=== PATIENT | female | born 1990 | race Caucasian/White ===

== ENCOUNTER 2016-08-30 17:49 | Emergency (ER) | payer MEDICAID ==
[2016-08-30] MEDS ORDERED: IBUPROFEN 800 MG TABLET PO ONE (18:03)
--- NOTE | 2016-08-30 18:04 | ER Document Report ---
ED Medical Screen (RME) - General Stated Complaint: BODY PAIN Mode of Arrival: Ambulatory Information source: Patient Notes: Patient complains of sore throat symptoms that started yesterday. Patient complains of generalized body aches. Patient states she has not been drinking much due to her pain symptoms. No fever. hx: None I have greeted and performed a rapid initial assessment of this patient. A comprehensive ED assessment and evaluation of the patient, analysis of test results and completion of the medical decision making process will be conducted by additional ED providers. TRAVEL OUTSIDE OF THE [place] IN LAST 30 DAYS: No - Related Data Allergies/Adverse Reactions: No Known Allergies Allergy (Verified 08/30/16 18:01) Past Medical History GI Medical History: Reports: Hx Gastritis Psychiatric Medical History: Reports: Hx Anxiety, Hx Attention Deficit Hyperactivity Disorder, Hx Bipolar Disorder, Hx Depression Infectious Medical History: Denies: Hx MRSA - Immunizations Hx Diphtheria, Pertussis, Tetanus Vaccination: Yes Physical Exam - Vital signs Vitals: Temp Pulse Resp BP Pulse Ox 98.5 F 121 H 20 117/63 94 08/30/16 17:59 08/30/16 17:59 08/30/16 17:59 08/30/16 17:59 08/30/16 17:59 - HEENT Pharynx: Erythema - Cardiovascular Rhythm: Tachycardia Heart sounds: S1 appreciated, S2 appreciated Course - Vital Signs Vital signs: Temp Pulse Resp BP Pulse Ox 98.5 F 121 H 20 117/63 94 08/30/16 17:59 08/30/16 17:59 08/30/16 17:59 08/30/16 17:59 08/30/16 17:59
--- NOTE | 2016-08-30 20:36 | ER Document Report ---
ED ENT - General Chief Complaint: Sore Throat Stated Complaint: BODY PAIN Time seen by provider: 20:35 Mode of Arrival: Ambulatory Information source: Patient TRAVEL OUTSIDE OF THE [place] IN LAST 30 DAYS: No - HPI Patient complains to provider of: Throat problem Onset: Yesterday Onset/Duration: Gradual, Persistent Quality of pain: Achy Severity: Moderate Pain Level: 3 Location of pain: Throat Associated symptoms: Dizziness Similar symptoms previously: No Recently seen / treated by doctor: No Notes: Patient is a 26-year-old female with no past medical history who presents to the emergency room complaining of sore throat that started yesterday with dizzy spells that of gone on intermittently, she denies any cough, no fever, no sick contacts, patient denies being , she is a smoker - Related Data Allergies/Adverse Reactions: No Known Allergies Allergy (Verified 08/30/16 18:01) Past Medical History - General Information source: Patient - Social History Smoking Status: Current Every Day Smoker Chew tobacco use (# tins/day): No Frequency of alcohol use: None Drug Abuse: None Family History: Reviewed & Not Pertinent Patient has suicidal ideation: No Patient has homicidal ideation: No Renal/ Medical History: Denies: Hx Peritoneal Dialysis GI Medical History: Reports: Hx Gastritis Psychiatric Medical History: Reports: Hx Anxiety, Hx Attention Deficit Hyperactivity Disorder, Hx Bipolar Disorder, Hx Depression Infectious Medical History: Denies: Hx MRSA Surgical Hx: Negative - Immunizations Hx Diphtheria, Pertussis, Tetanus Vaccination: Yes Review of Systems - Review of Systems Constitutional: No symptoms reported. denies: Fever EENT: Throat pain Cardiovascular: Dizziness Respiratory: No symptoms reported Gastrointestinal: No symptoms reported Genitourinary: No symptoms reported Female Genitourinary: No symptoms reported Musculoskeletal: No symptoms reported Skin: No symptoms reported Hematologic/Lymphatic: No symptoms reported Neurological/Psychological: No symptoms reported -: Yes All other systems reviewed and negative Physical Exam - Vital signs Vitals: Temp Pulse Resp BP Pulse Ox 98.5 F 121 H 20 117/63 94 08/30/16 17:59 08/30/16 17:59 08/30/16 17:59 08/30/16 17:59 08/30/16 17:59 Interpretation: Normal - General General appearance: Appears well, Alert - HEENT Head: Normocephalic, Atraumatic Eyes: Normal Conjunctiva: Normal Extraocular movements intact: Yes Eyelashes: Normal Pupils: PERRL Ears: Normal External canal: Normal Tympanic membrane: Normal Mouth/Lips: Normal Mucous membranes: Normal Pharynx: Erythema. No: Exudate, Tonsillar hypertrophy, Uvular edema Neck: Normal - Respiratory Respiratory status: No respiratory distress - Cardiovascular Rhythm: Regular - Abdominal Inspection: Normal - Back Back: Normal, Nontender - Extremities General upper extremity: Normal inspection, Nontender, Normal color, Normal ROM , Normal temperature General lower extremity: Normal inspection, Nontender, Normal color, Normal ROM , Normal temperature, Normal weight bearing. No: Kennedy's sign - Neurological Neuro grossly intact: Yes Cognition: Normal Orientation: AAOx4 [place] Coma Scale Eye Opening: Spontaneous [place] Coma Scale Verbal: Oriented [place] Coma Scale Motor: Obeys Commands [place] Coma Scale Total: 15 Speech: Normal Motor strength normal: LUE, RUE, LLE, RLE Sensory: Normal - Psychological Associated symptoms: Normal affect, Normal mood - Skin Skin Temperature: Warm Skin Moisture: Dry Skin Color: Normal Course - Re-evaluation Re-evalutation: 08/30/16 21:52 Physical exam findings unremarkable except for mild posterior pharynx erythema, patient states that the main to go home she is chewing his actually given her significant relief of her sore throat, she was advised that her rapid strep test was negative, advised to take Tylenol or Motrin as needed for pain or fever , drink plenty of fluids, follow up with her primary care provider in one to 2 days or return if symptoms worsen, patient acknowledges understanding and agreement with this plan - Vital Signs Vital signs: Temp Pulse Resp BP Pulse Ox 98.7 F 98 16 106/63 97 08/30/16 20:42 08/30/16 20:42 08/30/16 20:42 08/30/16 20:42 08/30/16 20:42 Discharge - Discharge Clinical Impression: Viral upper respiratory illness, Sore throat Condition: Stable Disposition: HOME, SELF-CARE Instructions: Acetaminophen, Sore Throat ([facility]), Upper Respiratory Illness ([facility]) , Viral Syndrome ([facility]) Additional Instructions: Drink plenty of fluids. Tylenol or Motrin as needed for fever. Follow-up with your primary care provider in one to 2 days. Return to the emergency room immediately if symptoms worsen or any additional concerns. Referrals: PRISCILLA ANTONY, CIRCULATION MAN-C [Primary Care Provider] - Follow up as needed
[2016-08-30 20:44] VITALS: BP 106/63
== END 2016-08-30 20:44 | disposition home or self-care (01) ==
LOC: ER 17:49
DX: J06.9 Acute upper respiratory infection, unspecified (principal); M79.1 Myalgia; R42 Dizziness and giddiness; F17.200 Nicotine dependence, unspecified, uncomplicated
CPT/HCPCS: 99283; 87070; 87880; J3490

== ENCOUNTER 2017-07-14 20:55 | Emergency (ER) | payer MEDICAID ==
[2017-07-14] MEDS ORDERED: ACETAMINOPHEN 325 MG TABLET PO ONE (22:05)
[2017-07-14] MEDS ORDERED: TETRACAINE HCL 0.5% OPH SOLN 2 ML OD ONE (23:04)
--- NOTE | 2017-07-14 23:22 | ER Document Report ---
HPI - HPI Patient complains to provider of: right eye injury Pain Level: 5 Context: Patient is a 26 year old female that comes to the ED for chief complaint of right eye discomfort and discharge. Yesterday her child accidentally hit her in the face, scratching her eye. She reports clear and slight yellow discharge, intermittent blurred vision, and pain. She denies visual loss. She does not wear visual correction. She denies any other injuries or complaints. - EENT EENT: REPORTS: Eye problems - redness, watering - REPRODUCTIVE Reproductive: REPORTS: : Past Medical History - General Information source: Patient - Social History Smoking Status: Current Every Day Smoker Chew tobacco use (# tins/day): No Frequency of alcohol use: Rare Drug Abuse: None Lives with: Family Family History: Reviewed & Not Pertinent Patient has suicidal ideation: No Patient has homicidal ideation: No Renal/ Medical History: Denies: Hx Peritoneal Dialysis GI Medical History: Reports: Hx Gastritis Psychiatric Medical History: Reports: Hx Anxiety, Hx Attention Deficit Hyperactivity Disorder, Hx Bipolar Disorder, Hx Depression - anxiety Infectious Medical History: Denies: Hx MRSA - Immunizations Hx Diphtheria, Pertussis, Tetanus Vaccination: Yes Vertical Provider Document - INFECTION CONTROL TRAVEL OUTSIDE OF THE [place] IN LAST 30 DAYS: No - HEENT HEENT: Atraumatic, Normocephalic. negative: Normal ENT Exam - Small abrasion on the inside of the right eyelid. Questionable tiny corneal abrasion on the inferior medial aspect of the cornea (noted with fluorescein dye). Negative Aubrey sign, no foreign body, normal pupil, minimally injected conjunctivae, no discharge, normal eyelids otherwise, normal EOMs, normal eye exam otherwise. - NECK Neck: Normal Inspection - RESPIRATORY Respiratory: Breath Sounds Normal, No Respiratory Distress O2 Sat by Pulse Oximetry: 98 - CARDIOVASCULAR Cardiovascular: Regular Rate, Regular Rhythm - GI/ABDOMEN Gastrointestinal: Abdomen Soft, Abdomen Non-Tender - NEURO Level of Consciousness: Awake, Alert, Appropriate - DERM Integumentary: Warm, Dry, No Rash Course - Vital Signs Vital signs: Temp Pulse Resp BP Pulse Ox 98.8 F 91 18 123/56 L 98 07/14/17 21:13 07/14/17 21:13 07/14/17 21:13 07/14/17 21:13 07/14/17 21:13 Discharge - Discharge Clinical Impression: Acute right eye pain Condition: Stable Disposition: HOME, SELF-CARE Additional Instructions: Exam consistent with abrasion of eyelid and cornea. Use antibiotic drops (1 drop three times daily for 7 days), use pain medication given if needed. Follow up with Ophthalmology referral listed. Return if you worsen - swelling or redness of the eye or eyelid, fever, loss of vision, etc. Referrals: LINDA PAN MD [ACTIVE STAFF] - 07/16/17
[2017-07-14] MEDS ORDERED: POLYMYXIN B SULFATE/TMP OPH SOLN 10 ML OD ONE (23:23)
[2017-07-14] MEDS ORDERED: HYDROCODONE/ACETAMINOPHEN 5-325 MG 6 TAB/DSPK PO PRN (23:25)
[2017-07-14] MEDS ORDERED: BESIFLOXACIN HCL 0.6% OPH SUSP 5 ML BOTTLE OD ONE (23:44)
[2017-07-15 00:17] VITALS: BP 113/59
== END 2017-07-14 23:55 | disposition home or self-care (01) ==
LOC: ER 20:55
DX: O9A.219 Injury, poisoning and certain other consequences of external causes complicating pregnancy, unspecified trimester (principal); S00.211A Abrasion of right eyelid and periocular area, initial encounter; H57.11 Ocular pain, right eye; H57.8 Other specified disorders of eye and adnexa; H53.8 Other visual disturbances; W50.0XXA Accidental hit or strike by another person, initial encounter; O99.330 Smoking (tobacco) complicating pregnancy, unspecified trimester; Z3A.00 Weeks of gestation of pregnancy not specified
CPT/HCPCS: 99283; J3490 ×3

== ENCOUNTER 2017-09-11 20:43 | Emergency (ER) | payer MEDICAID ==
[2017-09-11 21:38] LABS: APPEARANCE,URINE SLIGHTLY-CLOUDY; BILIRUBIN,URINE NEGATIVE (NEGATIVE); COLOR,URINE YELLOW; GLUCOSE, URINE NEGATIVE (NEGATIVE); KETONES,URINE NEGATIVE (NEGATIVE); LEUKOCYTE ESTERASE,URINE NEGATIVE (NEGATIVE); NITRITE,URINE NEGATIVE (NEGATIVE); PROTEIN,URINE NEGATIVE (NEGATIVE); URINE SPECIFIC GRAVITY 1.028; UROBILINOGEN,URINE NEGATIVE mg/dL (<2.0)
--- NOTE | 2017-09-11 22:21 | ER Document Report ---
ED Medical Screen (RME) - General Chief Complaint: Abdominal Pain Stated Complaint: ABDOMINAL PAIN Time Seen by Provider: 09/11/17 22:19 Mode of Arrival: Ambulatory Information source: Patient Notes: 27-year-old female presents to ED for complaint of generalized severe abdominal pain level 5/5 since yesterday 2 AM. She states her last BM was today. Denies any nausea/vomiting/diarrhea or fever. Abdomen soft nondistended tender generalized. Taking any medication for the pain. States she has a history of reflux. I have greeted and performed a rapid initial assessment of this patient. A comprehensive ED assessment and evaluation of the patient, analysis of test results and completion of medical decision making process will be conducted by an additional ED providers. TRAVEL OUTSIDE OF THE [place] IN LAST 30 DAYS: No - Related Data Allergies/Adverse Reactions: No Known Allergies Allergy (Verified 07/14/17 23:00) Past Medical History Renal/ Medical History: Denies: Hx Peritoneal Dialysis GI Medical History: Reports: Hx Gastritis Psychiatric Medical History: Reports: Hx Anxiety, Hx Attention Deficit Hyperactivity Disorder, Hx Bipolar Disorder, Hx Depression - anxiety Infectious Medical History: Denies: Hx MRSA - Immunizations Hx Diphtheria, Pertussis, Tetanus Vaccination: Yes Physical Exam - Vital signs Vitals: Temp Pulse Resp BP Pulse Ox 98.5 F 106 H 18 129/71 H 98 09/11/17 20:51 09/11/17 20:51 09/11/17 20:51 09/11/17 20:51 09/11/17 20:51 Course - Vital Signs Vital signs: Temp Pulse Resp BP Pulse Ox 98.5 F 106 H 18 129/71 H 98 09/11/17 20:51 09/11/17 20:51 09/11/17 20:51 09/11/17 20:51 09/11/17 20:51
[2017-09-11 23:17] LABS: ABSOLUTE EOSINOPHILS # (AUTO) 0.2 10^3/uL (0.0-0.6); ABSOLUTE MONOCYTES (AUTO) 0.5 10^3/uL (0.1-1.4); ABSOLUTE NEUT (AUTO) 7.8 10^3/uL (1.7-8.2); BASOPHILS % (AUTO) 0.3 % (0-2); EOSINOPHILS % (AUTO) 1.4 % (0-6); HEMATOCRIT 42.3 % (36.0-47.0); HEMOGLOBIN 14.7 g/dL (12.0-15.5); LYMPHOCYTES % (AUTO) 31.8 % (13-45); MEAN CORPUSCULAR HGB CONC 34.7 g/dL (32.0-36.0); MEAN CORPUSCULAR VOLUME 89 fl (80-97); MONOCYTES % (AUTO) 4.3 % (3-13); PLATELET COUNT 206 10^3/uL (150-450); RED BLOOD COUNT 4.74 10^6/uL (3.72-5.28); RED CELL DISTRIBUTION WIDTH 12.6 % (11.5-14.0); SEGMENTED NEUTROPHILS % (AUTO) 62.2 % (42-78); TOTAL CELLS COUNTED % (AUTO) 100 %; WHITE BLOOD COUNT 12.6 10^3/uL (4.0-10.5)
[2017-09-12 02:17] LABS: ALANINE AMINOTRANSFERASE 58 U/L (9-52); ALBUMIN 4.1 g/dL (3.5-5.0); ALKALINE PHOSPHATASE 119 U/L (38-126); ANION GAP 11 (5-19); ASPARTATE AMINO TRANSFERASE 38 U/L (14-36); BILIRUBIN,DIRECT 0.3 mg/dL (0.0-0.4); BILIRUBIN,TOTAL 0.3 mg/dL (0.2-1.3); BLOOD UREA NITROGEN 16 mg/dL (7-20); CARBON DIOXIDE 22 mmol/L (22-30); CHLORIDE 105 mmol/L (98-107); GLUCOSE 93 mg/dL (75-110); POTASSIUM 4.1 mmol/L (3.6-5.0); TOTAL PROTEIN 6.6 g/dL (6.3-8.2)
[2017-09-12] MEDS ORDERED: NORMAL SALINE 1000 ML 1,000 ML IV ONE (02:24)
[2017-09-12] MEDS ORDERED: ONDANSETRON HCL INJ/PF 4 MG/2 ML SDV IV ONE (02:24)
[2017-09-12] MEDS ORDERED: HYDROMORPHONE HCL INJ/PF 2 MG/ML AMPULE IV ONE (02:24)
--- NOTE | 2017-09-12 02:30 | ER Document Report ---
ED General - General Chief Complaint: Abdominal Pain Stated Complaint: ABDOMINAL PAIN Time Seen by Provider: 09/11/17 22:19 Mode of Arrival: Ambulatory Information source: Patient TRAVEL OUTSIDE OF THE [place] IN LAST 30 DAYS: No - HPI Notes: 27-year-old lady with no significant past medical history who presented today for evaluation of abdominal pain. Patient reported that her pain started approximately 2 days ago. Pain started in her lower abdomen described as cramping, no radiation, severity of pain was 6 out of 10. Patient did notice that today her pain progressed into her mid abdomen. Patient denied any fevers , chills, nausea or vomiting, no diarrhea. Patient denies any vaginal bleeding or dysuria. No prior history of abdominal surgeries. Patient has IUD. - Related Data Allergies/Adverse Reactions: No Known Allergies Allergy (Verified 07/14/17 23:00) Past Medical History - General Information source: Patient - Social History Smoking Status: Unknown if Ever Smoked Family History: Reviewed & Not Pertinent Patient has suicidal ideation: No Patient has homicidal ideation: No Renal/ Medical History: Denies: Hx Peritoneal Dialysis GI Medical History: Reports: Hx Gastritis Psychiatric Medical History: Reports: Hx Anxiety, Hx Attention Deficit Hyperactivity Disorder, Hx Bipolar Disorder, Hx Depression - anxiety Infectious Medical History: Denies: Hx MRSA - Immunizations Hx Diphtheria, Pertussis, Tetanus Vaccination: Yes Review of Systems - Review of Systems Notes: REVIEW OF SYSTEMS: CONSTITUTIONAL: -fevers, -chills EENT: -eye pain, -difficulty swallowing, -nasal congestion CARDIOVASCULAR: -chest pain, -syncope. RESPIRATORY: -cough, -SOB GASTROINTESTINAL: +abdominal pain, -nausea, -vomiting, -diarrhea GENITOURINARY: -dysuria, -hematuria MUSCULOSKELETAL: -back pain, -neck pain SKIN: -rash or skin lesions. HEMATOLOGIC: -easy bruising or bleeding. LYMPHATIC: -swollen, enlarged glands. NEUROLOGICAL: -altered mental status or loss of consciousness, -headache, - neurologic symptoms PSYCHIATRIC: -anxiety, -depression. ALL OTHER SYSTEMS REVIEWED AND NEGATIVE. Physical Exam - Vital signs Vitals: Temp Pulse Resp BP Pulse Ox 98.5 F 106 H 18 129/71 H 98 09/11/17 20:51 09/11/17 20:51 09/11/17 20:51 09/11/17 20:51 09/11/17 20:51 - Notes Notes: Reviewed vital signs and nursing note as charted by RN. CONSTITUTIONAL: Alert and oriented and responds appropriately to questions HEAD: Normocephalic; atraumatic EYES: PERRL; Conjunctivae clear, sclerae non-icteric ENT: normal nose; no rhinorrhea NECK: Supple without meningismus CARD: Regular rate and rhythm; no murmurs, no clicks, no rubs, no gallops; symmetric distal pulses RESP: Normal chest excursion without splinting or tachypnea ABD/GI: Normal bowel sounds; non-distended; soft, mild tenderness to palpation in bilateral lower quadrant as well as suprapubic area BACK: The back appears normal and is non-tender to palpation EXT: Normal ROM in all joints; non-tender to palpation; no cyanosis, no effusions, no edema SKIN: Normal color for age and race; warm; dry; good turgor; capillary refill < 2 seconds; no acute lesions noted NEURO: .Cranial nerves 3-12 intact. Motor strength 5/5 bilaterally. Sensation intact to touch bilaterally. No pronator drift. Finger to nose intact bilaterally PSYCH: The patient's mood and manner are appropriate. Grooming and personal hygiene are appropriate. Course - Re-evaluation Re-evalutation: 09/12/17 02:28 27-year-old with lower abdominal pain for the past 2 days Differential diagnoses includes acute appendicitis, intra-abdominal infection, colitis, acute cystitis, hematuria, kidney stone, We will obtain basic lab work including CBC, CMP, lipase, urinalysis, urine test We will obtain CT scan of her abdomen and pelvis with contrast We will give patient IV Dilaudid for pain, Zofran for nausea IV fluids Reassess patient - Vital Signs Vital signs: Temp Pulse Resp BP Pulse Ox 98.5 F 106 H 18 129/71 H 98 09/11/17 20:51 09/11/17 20:51 09/11/17 20:51 09/11/17 20:51 09/11/17 20:51 - Laboratory Result Diagrams: 09/11/17 22:50 09/12/17 01:45 Laboratory results interpreted by me: 09/11/17 09/12/17 22:50 01:45 WBC 12.6 H AST 38 H ALT 58 H Discharge - Discharge Referrals: PRISCILLA ANTONY, STRUCTURAL TECHNICIANChristianoC [Primary Care Provider] - Follow up as needed
--- NOTE | 2017-09-12 05:40 | RADIOLOGY REPORT (SQ) ---
EXAM DESCRIPTION: CT ABD/PELVIS WITH IV ORAL CLINICAL HISTORY: 27 years Female, lower abdominal pain COMPARISON: None. TECHNIQUE: No contrast. Coronal and sagittal reformat. This exam was performed according to our departmental dose-optimization program, which includes automated exposure control, adjustment of the mA and/or kV according to patient size and/or use of iterative reconstruction technique. FINDINGS: No acute findings. No free fluid. Normal appendix. Adequate appearing IUD. Inferior thorax, liver, gallbladder, pancreas, spleen, adrenals, renal system, gastrointestinal tract, pelvic organs, lymphatics, vasculature, and musculoskeleton appear otherwise unremarkable. IMPRESSION: No acute findings.
[2017-09-12] MEDS ORDERED: HYDROCODONE/ACETAMINOPHEN 5-325 MG (6 TAB/ER DISP) PO PRN (05:52)
[2017-09-12 06:33] VITALS: BP 110/63
== END 2017-09-12 06:30 | disposition home or self-care (01) ==
LOC: ER 20:43
DX: R10.30 Lower abdominal pain, unspecified (principal)
CPT/HCPCS: 99284; 96360; 36415; 83690; 85025; 81025; 80053; 81001; 74177; J7030

== ENCOUNTER 2018-05-26 12:54 | Emergency (ER) | payer MEDICAID ==
[2018-05-26 13:49] VITALS: BP 96/41
--- NOTE | 2018-05-26 13:50 | ER Document Report ---
ED General - General Chief Complaint: Cough Stated Complaint: COUGH Time Seen by Provider: 05/26/18 13:40 Mode of Arrival: Ambulatory Information source: Patient Notes: 27-year-old female presents emergency department with complaints of a cough for the last 2 months. She describes it as a dry cough. She denies following up with her family physician for the cough. She has not taken any antibiotics or cough and cold medication. She states that she has had associated rhinorrhea and sore throat. There have been sick contacts around her with similar symptoms. Patient states she does smoke. She states that today she was coughing so much that it caused her to vomit. TRAVEL OUTSIDE OF THE [place] IN LAST 30 DAYS: No - HPI Onset: Other - 2 months Quality of pain: No pain Severity: None Pain Level: Denies Associated symptoms: Nonproductive cough Exacerbated by: Denies Relieved by: Denies Similar symptoms previously: No Recently seen / treated by doctor: No - Related Data Allergies/Adverse Reactions: No Known Allergies Allergy (Verified 05/26/18 12:56) Past Medical History - General Information source: Patient - Social History Smoking Status: Current Every Day Smoker Chew tobacco use (# tins/day): No Frequency of alcohol use: Rare Drug Abuse: None Family History: Reviewed & Not Pertinent Patient has suicidal ideation: No Patient has homicidal ideation: No Renal/ Medical History: Denies: Hx Peritoneal Dialysis GI Medical History: Reports: Hx Gastritis Psychiatric Medical History: Reports: Hx Anxiety, Hx Attention Deficit Hyperactivity Disorder, Hx Bipolar Disorder, Hx Depression - anxiety Infectious Medical History: Denies: Hx MRSA - Immunizations Hx Diphtheria, Pertussis, Tetanus Vaccination: Yes Review of Systems - Review of Systems Constitutional: No symptoms reported EENT: Nose congestion, Nose discharge Cardiovascular: No symptoms reported Respiratory: Cough Gastrointestinal: No symptoms reported Genitourinary: No symptoms reported Female Genitourinary: No symptoms reported Musculoskeletal: No symptoms reported Skin: No symptoms reported Hematologic/Lymphatic: No symptoms reported Physical Exam - Vital signs Vitals: Temp Pulse Resp BP Pulse Ox 98.2 F 72 18 101/61 95 05/26/18 13:02 05/26/18 13:02 05/26/18 13:02 05/26/18 13:02 05/26/18 13:02 - General Notes: PHYSICAL EXAMINATION: GENERAL: Well-appearing, well-nourished and in no acute distress. HEAD: Atraumatic, normocephalic. EYES: Pupils equal round and reactive to light, extraocular movements intact, conjunctiva are normal. ENT: Nares patent, oropharynx clear without exudates. Moist mucous membranes. NECK: Normal range of motion, supple without lymphadenopathy LUNGS: Breath sounds clear to auscultation bilaterally and equal. No wheezes rales or rhonchi. HEART: Regular rate and rhythm without murmurs ABDOMEN: Soft, nontender, nondistended abdomen. No guarding, no rebound. No masses appreciated. Female : deferred Musculoskeletal: Normal range of motion, no pitting or edema. No cyanosis. NEUROLOGICAL: Cranial nerves grossly intact. Normal speech, normal gait. Normal sensory, motor exams PSYCH: Normal mood, normal affect. SKIN: Warm, Dry, normal turgor, no rashes or lesions noted. Course - Re-evaluation Re-evalutation: 05/26/18 13:45 Vital signs are stable. As the patient's cough is been present for the last 2 months I will start her on antibiotics. I also sent her home with 5-day course of steroids. Patient educated to stop smoking. Patient told to take the medication prescribed as directed, to follow-up with her primary care physician this week, and to return to the emergency department for worsening symptoms. - Vital Signs Vital signs: Temp Pulse Resp BP Pulse Ox 98.2 F 72 18 101/61 95 05/26/18 13:02 05/26/18 13:02 05/26/18 13:02 05/26/18 13:02 05/26/18 13:02 Discharge - Discharge Clinical Impression: Cough Condition: Good Disposition: HOME, SELF-CARE Instructions: Cough Suppressant & Expectorant Medications Prescriptions: Benzonatate [Tessalon Perles 100 mg Capsule] 100 mg PO Q8HP PRN #20 capsule PRN Reason: Azithromycin 250 mg PO DAILY 5 Days #6 tablet Referrals: PRISCILLA ANTONY FNP-C [Primary Care Provider] - Follow up as needed
== END 2018-05-26 13:53 | disposition home or self-care (01) ==
LOC: ER 12:54
DX: R05 Cough (principal); F17.200 Nicotine dependence, unspecified, uncomplicated
CPT/HCPCS: 99283

== ENCOUNTER 2018-08-11 23:15 | Emergency (ER) | payer MEDICAID ==
--- NOTE | 2018-08-12 02:25 | ER Document Report ---
HPI - HPI Patient complains to provider of: back pain Time Seen by Provider: 08/12/18 02:00 Pain Level: 5 Context: 28-year-old female with history of chronic back pain presents to the emergency department for acute on chronic back pain. She states is been going on for about 1 week and is bilateral that starts from her trapezius muscles down to her buttocks. She denies fevers, chills, nausea, vomiting, any urinary symptoms. She denies saddle paresthesia or urinary retention. She has no other symptoms. She states she can usually manage it at home with Aleve but the pain is too acute. - CONSTITUTIONAL Constitutional: DENIES: Fever, Chills - REPRODUCTIVE Reproductive: DENIES: : Past Medical History - Social History Smoking Status: Current Every Day Smoker Chew tobacco use (# tins/day): No Frequency of alcohol use: None Drug Abuse: None Family History: Reviewed & Not Pertinent Patient has suicidal ideation: No Patient has homicidal ideation: No Renal/ Medical History: Denies: Hx Peritoneal Dialysis GI Medical History: Reports: Hx Gastritis Psychiatric Medical History: Reports: Hx Anxiety, Hx Attention Deficit Hyperactivity Disorder, Hx Bipolar Disorder, Hx Depression - anxiety Infectious Medical History: Denies: Hx MRSA - Immunizations Hx Diphtheria, Pertussis, Tetanus Vaccination: Yes Vertical Provider Document - CONSTITUTIONAL Notes: Reviewed vital signs and nursing note as charted by RN. CONSTITUTIONAL: Well-appearing, well-nourished, acting appropriately for age HEAD: Normocephalic, atraumatic, no swelling EYES: PERRL, Conjunctivae clear, no drainage, EOMI, no scleral icterus NECK: Supple, no cervical lymphadenopathy, no masses CARD: Regular rate and rhythm, no murmurs, no rubs, no gallops, capillary refill < 2 seconds, symmetric pulses RESP: The lungs are clear to auscultation bilaterally, no wheezing, no rales, no rhonchi. Respiratory rate and effort are normal, normal chest excursion. No respiratory distress, no retractions, no stridor, no nasal flaring, no accessory muscle use. ABD/GI: Normal bowel sounds, non-distended, soft, non-tender, no rebound, no guarding, no palpable organomegaly EXT: Normal ROM in all joints, non-tender to palpation, no effusions, no edema BACK: Bilateral tenderness to palpation from the upper trapezius muscles down through the medial scapula bilateral down to the lumbar spine and the paraspinal muscles. No swelling no erythema no warmth. SKIN: Normal color for age and race, warm, dry, good turgor, no acute lesions noted NEURO: No facial asymmetry, moves all extremities equally, motor and sensory function intact - INFECTION CONTROL TRAVEL OUTSIDE OF THE [place] IN LAST 30 DAYS: No Course - Re-evaluation Re-evalutation: 08/12/18 02:29 28-year-old female with acute on chronic back pain presents to the emergency department for acute back pain that she cannot resolve with Aleve at home. She states she was carrying a fish tank and created a good distance downstairs outside which she thinks exacerbated the problem. She tried Aleve did not work, no fevers, no urinary retention, no saddle paresthesia, no concerns for any emergent spinal cord issues. Patient is very reliable and I am going to give her a couple of Valium that she can take get filled for acute breakthrough muscle tension and then a prescription for Robaxin that she can have on hand for when she has flares. She is stable for discharge. - Vital Signs Vital signs: Temp Pulse Resp BP Pulse Ox 98.0 F 75 17 115/66 100 08/11/18 23:52 08/11/18 23:52 08/11/18 23:52 08/11/18 23:52 08/11/18 23:52 Discharge - Discharge Clinical Impression: Back pain Qualifiers: Back pain location: thoracic back pain Chronicity: chronic Back pain laterality: bilateral Qualified Code(s): M54.6 - Pain in thoracic spine; G89.29 - Other chronic pain Condition: Stable Disposition: HOME, SELF-CARE Instructions: Ice Packs ([facility]), Low Back Pain ([facility]), Muscle Strain ([facility]), Warm Packs ([facility]) Additional Instructions: You are seen in the emergency department this evening for acute on chronic back pain. You had no concerning signs for any severe neurologic compromise. I have prescribed you with a muscle relaxer that you can take and also a small amount of Valium that you can take for breakthrough pain. These do not drive or operate machinery taking these. Please do not take them together. Please return to the emergency department if you get saddle paresthesia i.e. numbness in your sit bones, you have urinary retention, you cannot control your bowels, or you have any other concerning symptoms. Prescriptions: Diazepam [Valium 5 mg Tablet] 5 mg PO TID #5 tablet Methocarbamol [Robaxin 750 mg Tablet] 750 mg PO Q6 #20 tablet
[2018-08-12 02:39] VITALS: BP 127/65
== END 2018-08-12 02:39 | disposition home or self-care (01) ==
LOC: ER 23:15
DX: G89.29 Other chronic pain (principal); M54.6 Pain in thoracic spine; F17.200 Nicotine dependence, unspecified, uncomplicated
CPT/HCPCS: 99283

== ENCOUNTER 2018-09-13 12:37 | Emergency (ER) | payer MEDICAID ==
--- NOTE | 2018-09-13 13:01 | EKG REPORT ---
SEVERITY:- NORMAL ECG - SINUS RHYTHM : Confirmed by: Aneesh Reece MD 13-Sep-2018 13:00:32
[2018-09-13] MEDS ORDERED: ASPIRIN 81 MG TABLET, CHEWABLE PO ONE (13:59)
[2018-09-13] MEDS ORDERED: IPRATROPIUM/ALBUTEROL 0.5-2.5 MG/3 ML AMPUL NEB ONE (14:00)
[2018-09-13] MEDS ORDERED: ACETAMINOPHEN 325 MG TABLET PO ONE (14:00)
--- NOTE | 2018-09-13 14:26 | ER Document Report ---
ED General - General Chief Complaint: Chest Pain Stated Complaint: CHEST PAIN, SHORTNESS OF BREATH Time Seen by Provider: 09/13/18 13:53 Mode of Arrival: Ambulatory Information source: Patient Notes: 28-year-old female with no reported past medical history except for chronic back pain presents with complaint of chest pain that started 4 hours prior to arrival while at work. Patient describes the pain as pressure-like. She reports pain with inspiration. She denies coughing, shortness of breath. Patient's back pain is unchanged and described as a throbbing aching pain that is worse with movement. Patient does report recent heavy lifting at work yesterday and this morning. Patient does have a smoking history but denies family history of early cardiac disease. Patient has not had any nausea, diaphoresis, recent illness. TRAVEL OUTSIDE OF THE [place] IN LAST 30 DAYS: No - HPI Onset: This morning Onset/Duration: Gradual, Persistent Quality of pain: Pressure Severity: Mild Associated symptoms: Chest pain, Hurts to breath, Other - Back pain. denies: Nonproductive cough, Nausea, Vomiting, Shortness of breath, Sweating Exacerbated by: Movement Relieved by: Denies Similar symptoms previously: Yes Recently seen / treated by doctor: No - Related Data Allergies/Adverse Reactions: No Known Allergies Allergy (Verified 09/13/18 13:53) Past Medical History - General Information source: Patient, [facility] Records - Social History Smoking Status: Current Every Day Smoker Cigarette use (# per day): Yes - 8 Smoking Education Provided: Yes - Smoking cessation counseling was provided for 4 minutes at the bedside Frequency of alcohol use: None Drug Abuse: None Lives with: Family Family History: Reviewed & Not Pertinent Patient has suicidal ideation: No Patient has homicidal ideation: No Renal/ Medical History: Denies: Hx Peritoneal Dialysis GI Medical History: Reports: Hx Gastritis Musculoskeletal Medical History: Reports Other - Chronic back pain Psychiatric Medical History: Reports: Hx Anxiety, Hx Attention Deficit Hyperactivity Disorder, Hx Bipolar Disorder, Hx Depression - anxiety Infectious Medical History: Denies: Hx MRSA - Immunizations Hx Diphtheria, Pertussis, Tetanus Vaccination: Yes Review of Systems - Review of Systems Notes: REVIEW OF SYSTEMS: CONSTITUTIONAL : Denies fever, chills, or sweats. Denies recent illness. Denies weight loss, recent hospitalizations. EENT: Denies visual changes, eye pain. Denies sore throat, oral lesions, difficulty swallowing. CARDIOVASCULAR: Denies palpitations. Denies lower extremity edema. RESPIRATORY: Denies cough. Denies shortness of breath, wheezing. GASTROINTESTINAL: Denies abdominal pain or distention. Denies nausea, vomiting, or diarrhea. Denies blood in vomitus, stools, or per rectum. Denies black, tarry stools. Denies constipation. GENITOURINARY: Denies difficulty urinating, painful urination, frequency, blood in urine, or vaginal discharge. MUSCULOSKELETAL: Denies neck pain or stiffness. Denies joint pain or swelling. SKIN: Denies rash, lesions or sores. HEMATOLOGIC : Denies easy bruising or bleeding. LYMPHATIC: Denies swollen glands. NEUROLOGICAL: Denies confusion or altered mental status. Denies loss of consciousness. Denies dizziness or lightheadedness. Denies headache. Denies weakness or paralysis. Denies problems difficulty with ambulation, slurred speech. Denies sensory loss, numbness, or tingling. Denies seizures. PSYCHIATRIC: Denies anxiety or stress. Denies depression, suicidal ideation, or homicidal ideation. Denies visual or auditory hallucinations. Physical Exam - Vital signs Vitals: Temp Pulse Resp BP Pulse Ox 98.6 F 62 18 125/63 100 09/13/18 12:52 09/13/18 12:52 09/13/18 12:52 09/13/18 12:52 09/13/18 12:52 - Notes Notes: PHYSICAL EXAMINATION: GENERAL: Well-appearing, well-nourished and in no acute distress. HEAD: Atraumatic, normocephalic. EYES: Pupils equal round and reactive to light, extraocular movements intact, conjunctiva are normal. ENT: Nares patent, oropharynx clear without exudates. Moist mucous membranes. NECK: Normal range of motion, supple without lymphadenopathy LUNGS: Breath sounds clear to auscultation bilaterally and equal. No wheezes rales or rhonchi. Pain with palpation to the anterior chest. No ecchymosis, no crepitus. HEART: Regular rate and rhythm without murmurs ABDOMEN: Soft, nontender, nondistended abdomen. No guarding, no rebound. No masses appreciated. Female : deferred Musculoskeletal: Normal range of motion, no pitting or edema. No cyanosis. Tenderness to the paraspinal musculature of the thoracic spine bilaterally. No midline tenderness. NEUROLOGICAL: Cranial nerves grossly intact. Normal speech, normal gait. Normal sensory, motor exams PSYCH: Normal mood, normal affect. SKIN: Warm, Dry, normal turgor, no rashes or lesions noted. Course - Re-evaluation Re-evalutation: 09/13/18 16:41 Laboratory 09/13/18 09/13/18 09/13/18 14:22 14:22 14:22 WBC 7.9 RBC 4.33 Hgb 13.8 Hct 39.4 MCV 91 MCH 31.8 MCHC 35.0 RDW 13.4 Plt Count 185 Seg Neutrophils % 58.8 Lymphocytes % 34.8 Monocytes % 5.0 Eosinophils % 1.1 Basophils % 0.3 Absolute Neutrophils 4.7 Absolute Lymphocytes 2.8 Absolute Monocytes 0.4 Absolute Eosinophils 0.1 Absolute Basophils 0.0 Sodium 142.6 Potassium 4.2 Chloride 106 Carbon Dioxide 29 Anion Gap 8 BUN 13 Creatinine 0.74 Est GFR ( Amer) > 60 Est GFR (Non-Af Amer) > 60 Glucose 97 Calcium 9.6 Total Bilirubin 0.5 Direct Bilirubin 0.2 Neonat Total Bilirubin Not Reportable Neonat Direct Bilirubin Not Reportable Neonat Indirect Bili Not Reportable AST 13 L ALT 20 Alkaline Phosphatase 97 Creatine Kinase 44 CK-MB (CK-2) 0.37 Troponin I < 0.012 Total Protein 7.1 Albumin 4.6 Chest/Abdomen CTA 09/13/18 13:59 IMPRESSION: NORMAL CTA OF THE CHEST. NO PULMONARY EMBOLI. Temp Pulse Resp BP Pulse Ox 98.6 F 62 18 125/63 100 09/13/18 12:52 09/13/18 12:52 09/13/18 12:52 09/13/18 12:52 09/13/18 12:52 28-year-old female presents with pleuritic chest pain, upper back pain. Patient reports back pain as being chronic. Chest pain started this morning while at work. Patient does report recent heavy lifting. Vital signs stable upon arrival. Patient does not appear toxic or dehydrated. She is in no acute distress. Previous medical records and nursing notes reviewed. Cardiac enzymes, CBC, CMP are within normal limits. CTA of the chest is without evidence of pneumothorax, pneumonia, PE. Low suspicion for ACS. Patient did receive Toradol for pain. Patient was evaluated and treated as appropriate for the patient's presenting symptoms and complaint, with consideration of any critical or life threatening conditions that may be associated with their obtained history and exam as noted above. All results were discussed with patient. Patient provided the opportunity to ask questions, and express concerns. Patient was educated on treatments based on their presumed diagnosis as noted above. At this time we will discharge the patient with return precautions and follow-up recommendations. Verbal discharge instructions given a the bedside. Medication warnings reviewed. Patient is in agreement with this plan and has verbalized understanding of return precautions. After careful consideration I feel that that patient can be safely discharged from the emergency department, they were advised to followup with a primary care physician in 2-3 days. Dictation on this chart was performed using voice recognition software and may result in unintended grammatical, spelling, syntax or errors. HEART Score: History-0 ECG-0 Age-0 Risk Factors-1 Troponin Total: 1 If HEART score is = 3 AND both troponin measurements are normal, the 30 day risk of a major adverse cardiac event (all-cause mortality, myocardial infarction or need for coronary revascularization) is < 1% (Sensitivity 100%, NPV 100%). Chest pain in a patient without evidence of cardiac or other serious etiology on workup today. I discussed with patient that, based on their age, risk factors and emergency department testing today, the likelihood that their symptoms are related to a heart attack is very low (estimated risk of heart attack or over the next 30 days of less than 1%). The patient demonstrates decision making capacity and has verbalized an understanding of these risks to me. Based on this, the patient has chosen to follow-up as an outpatient. Usual chest pain return precautions reviewed. The patient states understanding and agreement with this plan. - Vital Signs Vital signs: Temp Pulse Resp BP Pulse Ox 98.6 F 62 18 125/63 100 09/13/18 12:52 09/13/18 12:52 09/13/18 12:52 09/13/18 12:52 09/13/18 12:52 - Laboratory Result Diagrams: 09/13/18 14:22 09/13/18 14:22 Laboratory results interpreted by me: 09/13/18 14:22 AST 13 L - Diagnostic Test Radiology reviewed: Image reviewed, Reports reviewed - EKG Interpretation by Me EKG shows normal: Sinus rhythm Rate: Normal Rhythm: NSR When compared to previous EKG there are: No significant change Discharge - Discharge Clinical Impression: Smoker, Chest wall pain, Costochondritis Chronic back pain Qualifiers: Back pain location: thoracic back pain Back pain laterality: bilateral Qualified Code(s): M54.6 - Pain in thoracic spine; G89.29 - Other chronic pain Condition: Good Disposition: HOME, SELF-CARE Instructions: Chest Wall Pain ([facility]), Costochondritis ([facility]) Additional Instructions: You were seen today for chest pain. The exact cause of your pain is unclear. However, based on your cardiac enzyme testing, chest x-ray, and EKG it does not appear that it is from an immediately life-threatening cause at this time. Although your testing here is normal is critical that you follow-up with your primary care physician for continued evaluation of this chest pain and possible stress testing. I recommended you see your physician within the next 24-48 hours to be evaluated for consideration of a stress test. Please return to emergency department immediately if you have worsening of your chest pain, shortness of breath, vomiting, become unable to exert yourself due to pain or difficulty breathing, you pass out, or have any pain that radiates into your arms, jaw, or back. Please also return if you have any additional symptoms that are concerning to you. Prescriptions: Naproxen [Naprosyn 250 mg Tablet] 500 mg PO BID PRN #20 tablet PRN Reason: For Chest Pain Forms: Smoking Cessation Education, Return to Work
[2018-09-13 14:38] LABS: ABSOLUTE EOSINOPHILS # (AUTO) 0.1 10^3/uL (0.0-0.6); ABSOLUTE LYMPHOCYTES (AUTO) 2.8 10^3/uL (0.5-4.7); ABSOLUTE MONOCYTES (AUTO) 0.4 10^3/uL (0.1-1.4); ABSOLUTE NEUT (AUTO) 4.7 10^3/uL (1.7-8.2); BASOPHILS % (AUTO) 0.3 % (0-2); EOSINOPHILS % (AUTO) 1.1 % (0-6); HEMATOCRIT 39.4 % (36.0-47.0); HEMOGLOBIN 13.8 g/dL (12.0-15.5); LYMPHOCYTES % (AUTO) 34.8 % (13-45); MEAN CORPUSCULAR HEMOGLOBIN 31.8 pg (27.0-33.4); MEAN CORPUSCULAR VOLUME 91 fl (80-97); PLATELET COUNT 185 10^3/uL (150-450); RED BLOOD COUNT 4.33 10^6/uL (3.72-5.28); RED CELL DISTRIBUTION WIDTH 13.4 % (11.5-14.0); SEGMENTED NEUTROPHILS % (AUTO) 58.8 % (42-78); TOTAL CELLS COUNTED % (AUTO) 100 %; WHITE BLOOD COUNT 7.9 10^3/uL (4.0-10.5)
[2018-09-13 14:46] LABS: ALANINE AMINOTRANSFERASE 20 U/L (9-52); ALBUMIN 4.6 g/dL (3.5-5.0); ALKALINE PHOSPHATASE 97 U/L (38-126); ANION GAP 8 (5-19); ASPARTATE AMINO TRANSFERASE 13 U/L (14-36); BILIRUBIN,DIRECT 0.2 mg/dL (0.0-0.4); BILIRUBIN,TOTAL 0.5 mg/dL (0.2-1.3); BLOOD UREA NITROGEN 13 mg/dL (7-20); CALCIUM 9.6 mg/dL (8.4-10.2); CARBON DIOXIDE 29 mmol/L (22-30); CHLORIDE 106 mmol/L (98-107); CREATINE KINASE 44 U/L (30-135); GLUCOSE 97 mg/dL (75-110); POTASSIUM 4.2 mmol/L (3.6-5.0); SODIUM 142.6 mmol/L (137-145); TOTAL PROTEIN 7.1 g/dL (6.3-8.2)
[2018-09-13 14:59] LABS: CREATINE KINASE MB 0.37 ng/mL (<4.55)
[2018-09-13 15:00] LABS: TROPONIN I < 0.012 ng/mL
[2018-09-13] MEDS ORDERED: KETOROLAC TROMETHAMINE INJ/PF 30 MG/1 ML SDV IV ONE (15:22)
--- NOTE | 2018-09-13 16:33 | RADIOLOGY REPORT (SQ) ---
EXAM DESCRIPTION: CTA CHEST COMPLETED DATE/TIME: 09/13/2018 4:21 pm REASON FOR STUDY: Pain with deep breathing COMPARISON: None. TECHNIQUE: CT scan of the chest performed using helical scanning technique with dynamic intravenous contrast injection. Images reviewed with lung, soft tissue and bone windows. Reconstructed coronal and sagittal MPR images reviewed. Additional 3 dimensional post-processing performed to develop Maximal Intensity Projection images ([place] P). All images stored on PACS. All CT scanners at this facility use dose modulation, iterative reconstruction, and/or weight based d osing when appropriate to reduce radiation dose to as low as reasonably achievable (ALARA). [facility]: Dose Right [facility]: CareDose [facility]: Dose Right [facility]: Teradose 4D [facility]: [employer] CONTRAST TYPE AND DOSE: contrast/concentration: Isovue 350.00 mg/ml; Total Contrast Delivered: 76.0 ml; Total Saline Delivered: 110.0 ml Contrast bolus adequate for pulmonary arteries and aorta. RENAL FUNCTION: BUN 13 creatinine 0.73. RADIATION DOSE: CT Rad equipment meets quality standard of care and radiation dose reduction techniq ues were employed. CTDIvol: 14.3 - 24.8 mGy. DLP: 543 mGy-cm. . LIMITATIONS: None. FINDINGS: LUNGS AND PLEURA: No masses, infiltrates, or pneumothorax. No pleural effusions or pleura l calcifications. AORTA AND GREAT VESSELS: No aneurysm. No dissection. HEART: No pericardial effusion. No significant coronary artery calcifications. PULMONARY ARTERIES: No emboli visualized in the main pulmonary arteries or the segmental branches. HILAR AND MEDIASTINAL STRUCTURES: No identified masses or abnormal nodes. HARDWARE: None in the chest. UPPER ABDOMEN: No significant findings. Limited exam. THYROID AND OTHER SOFT TISSUES: No masses. No adenopathy. BONES: No acute or significant finding. 3D MIPS: Confirm above findings. OTHER: No other significant finding. IMPRESSION: NORMAL CTA OF THE CHEST. NO PULMONARY EMBOLI. COMMENT: Quality ID # [id number]: Final reports with documentation of one or more dose reduction techniques (e.g., Automated exposure control, adjustment of the mA and/or kV according to patient size, use of iterative reconstruction technique) TECHNICAL DOCUMENTATION: JOB ID: [id number] [employer]- All Rights Reserved Reading location - IP/workstation name: [email or web address]
[2018-09-13 16:51] VITALS: BP 121/64
== END 2018-09-13 17:00 | disposition home or self-care (01) ==
LOC: ER 12:37
DX: M94.0 Chondrocostal junction syndrome [Tietze] (principal); R07.9 Chest pain, unspecified; R06.02 Shortness of breath; F17.210 Nicotine dependence, cigarettes, uncomplicated; G89.29 Other chronic pain; M54.9 Dorsalgia, unspecified
CPT/HCPCS: 93005; 99406; 94640; 96374; 99284; 36415; 82553; 82550; 85025; 80053; 84484; 71275; 93010; J3490; J1885; J7620

== ENCOUNTER 2019-01-30 14:18 | Emergency (ER) | payer SELFPAY ==
--- NOTE | 2019-01-30 15:03 | ER Document Report ---
ED Medical Screen (RME) - General Chief Complaint: Upper Abdominal Pain Stated Complaint: RIGHT SIDE PAIN Time Seen by Provider: 01/30/19 15:02 Mode of Arrival: Ambulatory Information source: Patient Notes: 28-year-old female presented to ED for right upper quadrant abdominal pain started this morning. She states she is also been nauseated and has not been able to eat or drink all day due to the pain and nausea. Patient is alert oriented respirations regular and unlabored speaking in full sentences. Patient states she smokes 10 to 15 cigarettes a day drinks about every 3 months and wo rks at [employer]. She denies any past medical history. I have greeted and performed a rapid initial assessment of this patient. A comprehensive ED assessment and evaluation of the patient, analysis of test results and completion of medical decision making process will be conducted by an additional ED providers. Dictation of this chart was performed using voice recognition software; therefor e, there may be some unintended grammatical errors. TRAVEL OUTSIDE OF THE [place] IN LAST 30 DAYS: No - Related Data Allergies/Adverse Reactions: No Known Allergies Allergy (Verified 01/30/19 14:26) Past Medical History Renal/ Medical History: Denies: Hx Peritoneal Dialysis GI Medical History: Reports: Hx Gastritis Psychiatric Medical History: Reports: Hx Anxiety, Hx Attention Deficit Hyperactivity Disorder, Hx Bipolar Disorder, Hx Depression - anxiety Infectious Medical History: Denies: Hx MRSA - Immunizations Hx Diphtheria, Pertussis, Tetanus Vaccination: Yes Physical Exam - Vital signs Vitals: Temp Pulse Resp BP Pulse Ox 98.5 F 75 17 116/60 96 01/30/19 14:33 01/30/19 14:33 01/30/19 14:33 01/30/19 14:33 01/30/19 14:33 Course - Vital Signs Vital signs: Temp Pulse Resp BP Pulse Ox 98.5 F 75 17 116/60 96 01/30/19 14:33 01/30/19 14:33 01/30/19 14:33 01/30/19 14:33 01/30/19 14:33
[2019-01-30 15:58] LABS: APPEARANCE,URINE CLEAR; BILIRUBIN,URINE NEGATIVE (NEGATIVE); COLOR,URINE YELLOW; GLUCOSE, URINE NEGATIVE (NEGATIVE); KETONES,URINE NEGATIVE (NEGATIVE); LEUKOCYTE ESTERASE,URINE TRACE (NEGATIVE); NITRITE,URINE POSITIVE (NEGATIVE); PROTEIN,URINE NEGATIVE (NEGATIVE); URINE SPECIFIC GRAVITY 1.014; UROBILINOGEN,URINE NEGATIVE mg/dL (<2.0)
[2019-01-30 16:00] LABS: ALANINE AMINOTRANSFERASE 23 U/L (9-52); ALBUMIN 4.4 g/dL (3.5-5.0); ALKALINE PHOSPHATASE 94 U/L (38-126); ANION GAP 7 (5-19); ASPARTATE AMINO TRANSFERASE 16 U/L (14-36); BILIRUBIN,DIRECT 0.3 mg/dL (0.0-0.4); BILIRUBIN,TOTAL 1.1 mg/dL (0.2-1.3); BLOOD UREA NITROGEN 10 mg/dL (7-20); CALCIUM 9.5 mg/dL (8.4-10.2); CARBON DIOXIDE 29 mmol/L (22-30); CHLORIDE 105 mmol/L (98-107); GLUCOSE 91 mg/dL (75-110); LIPASE 35.7 U/L (23-300); POTASSIUM 3.7 mmol/L (3.6-5.0); TOTAL PROTEIN 7.1 g/dL (6.3-8.2)
[2019-01-30 16:38] LABS: ABSOLUTE EOSINOPHILS # (AUTO) 0.1 10^3/uL (0.0-0.6); ABSOLUTE LYMPHOCYTES (AUTO) 3.2 10^3/uL (0.5-4.7); ABSOLUTE MONOCYTES (AUTO) 0.4 10^3/uL (0.1-1.4); ABSOLUTE NEUT (AUTO) 5.8 10^3/uL (1.7-8.2); BASOPHILS % (AUTO) 0.2 % (0-2); EOSINOPHILS % (AUTO) 1.3 % (0-6); HEMATOCRIT 39.7 % (36.0-47.0); HEMOGLOBIN 13.8 g/dL (12.0-15.5); LYMPHOCYTES % (AUTO) 33.4 % (13-45); MEAN CORPUSCULAR HEMOGLOBIN 31.8 pg (27.0-33.4); MEAN CORPUSCULAR HGB CONC 34.8 g/dL (32.0-36.0); MEAN CORPUSCULAR VOLUME 91 fl (80-97); MONOCYTES % (AUTO) 4.6 % (3-13); PLATELET COUNT 166 10^3/uL (150-450); RED BLOOD COUNT 4.34 10^6/uL (3.72-5.28); SEGMENTED NEUTROPHILS % (AUTO) 60.5 % (42-78); TOTAL CELLS COUNTED % (AUTO) 100 %; WHITE BLOOD COUNT 9.5 10^3/uL (4.0-10.5)
--- NOTE | 2019-01-30 17:20 | RADIOLOGY REPORT (SQ) ---
EXAM DESCRIPTION: U/S ABDOMEN LIMITED W/O DOP COMPLETED DATE/TIME: 01/30/2019 5:11 pm REASON FOR STUDY: Right upper quadrant abdominal pain last ate yeste COMPARISON: None. TECHNIQUE: Dynamic and static grayscale images acquired of the abdomen and recorded on PACS. Additio nal selected color Doppler and spectral images recorded. LIMITATIONS: None. FINDINGS: PANCREAS: No masses. Visualized pancreatic duct normal caliber. LIVER: No masses. Echotexture normal. LIVER VASCULATURE: Normal directional flow of the main portal vein and hepatic veins. GALLBLADDER: No stones. Minimal sludge. Normal wall thickness. No pericholecystic fluid. ULTRASOUND-DETECTED WALKER'S SIGN: Negative. INTRAHEPATIC DUCTS AND COMMON DUCT: CBD and intrahepatic ducts normal caliber. No filling defects. INFERIOR VENA CAVA: Normal flow. AORTA: No aneurysm identified. RIGHT KIDNEY: Normal size. Normal echogenicity. No solid or suspicious masses. No hydronephros is. No calcifications. PERITONEAL AND RIGHT PLEURAL SPACE: No ascites or effusions. OTHER: No other significant findings. IMPRESSION: NO ACUTE FINDINGS. TECHNICAL DOCUMENTATION: JOB ID: [id number] [email or web address]- All Rights Reserved Reading location - IP/workstation name: [email or web address]
[2019-01-30] MEDS ORDERED: MAG HYDROX/AL HYDROX/SIMETH SUSP 30 ML UDCUP PO ONE (19:16)
[2019-01-30] MEDS ORDERED: LIDOCAINE 2% VISCOUS SOLN 20 ML UDCUP PO ONE (19:16)
--- NOTE | 2019-01-30 20:07 | ER Document Report ---
ED General - General Chief Complaint: Upper Abdominal Pain Stated Complaint: RIGHT SIDE PAIN Time Seen by Provider: 01/30/19 15:02 Primary Care Provider: JAUN PINZON MD [ACTIVE STAFF] - Follow up in 1 week (FOR GI FOLLOW UP) Mode of Arrival: Ambulatory TRAVEL OUTSIDE OF THE [place] IN LAST 30 DAYS: No - HPI Notes: 28-year-old female to the emergency department with complaints of right upper quadrant abdominal pain that has been progressively getting worse and more constant over the past month. States that she has noticed that it typically gets worse when she eats. She has been seen in multiple emergency departments for the same but has never had imaging. She states that sometimes the pain radiates up into her chest and she also notices quite a bit of belching. Does report a history of peptic ulcer disease several years ago. Admits that she has been taking NSAIDs every so often but not frequently. She is not on any sort of proton pump inhibitor or H2 january currently. Admits that when the pain gets very severe she also has nausea. She has not seen a GI specialist since this pain started. She denies chance of . Denies any urinary complaints, vaginal discharge, vaginal bleeding, BRBPR, black stools, melena, hematochezia. She smokes. She denies any history of IBD in herself or family. - Related Data Allergies/Adverse Reactions: No Known Allergies Allergy (Verified 01/30/19 14:26) Past Medical History - General Information source: Patient - Social History Smoking Status: Current Every Day Smoker Frequency of alcohol use: Occasional Drug Abuse: None Family History: Reviewed & Not Pertinent Patient has suicidal ideation: No Patient has homicidal ideation: No Renal/ Medical History: Denies: Hx Peritoneal Dialysis GI Medical History: Reports: Hx Gastritis Psychiatric Medical History: Reports: Hx Anxiety, Hx Attention Deficit Hyperactivity Disorder, Hx Bipolar Disorder, Hx Depression - anxiety Infectious Medical History: Denies: Hx MRSA - Immunizations Hx Diphtheria, Pertussis, Tetanus Vaccination: Yes Review of Systems - Review of Systems Constitutional: Malaise. denies: Chills, Fever EENT: No symptoms reported Cardiovascular: denies: Palpitations, Heart racing, Dizziness, Lightheaded Respiratory: denies: Cough, Short of breath Gastrointestinal: Abdominal pain, Nausea. denies: Vomiting, Blood streaked bowels, Black stools, Rectal bleeding Genitourinary: No symptoms reported Musculoskeletal: No symptoms reported Skin: No symptoms reported Hematologic/Lymphatic: No symptoms reported Neurological/Psychological: No symptoms reported -: Yes All other systems reviewed and negative Physical Exam - Vital signs Vitals: Temp Pulse Resp BP Pulse Ox 98.5 F 75 17 116/60 96 01/30/19 14:33 01/30/19 14:33 01/30/19 14:33 01/30/19 14:33 01/30/19 14:33 Interpretation: Normal - General General appearance: Appears well In distress: None - HEENT Head: Normocephalic Eyes: Normal Pupils: PERRL - Respiratory Respiratory status: No respiratory distress Chest status: Nontender Breath sounds: Normal Chest palpation: Normal - Cardiovascular Rhythm: Regular Heart sounds: Normal auscultation Murmur: No - Abdominal Inspection: Normal Distension: No distension. No: Tympanitic, Fluid wave, Distended bladder Bowel sounds: Normal Tenderness: Tender - Positive tenderness to palpation in the epigastrium and to the right upper quadrant with negative Mcdaniels sign. No rebound no guarding. No peritoneal signs. No CVA tenderness. No right lower quadrant tenderness to palpation and negative McBurney's point.. No: McBurney's point, Guarding, Rebound Organomegaly: No organomegaly - Back Back: Normal, Nontender. No: CVA tenderness - Extremities General upper extremity: Normal inspection, Nontender, Normal color, Normal ROM, Normal temperature General lower extremity: Normal inspection, Nontender, Normal color, Normal ROM, Normal temperature, Normal weight bearing. No: Kennedy's sign - Neurological Neuro grossly intact: Yes Cognition: Normal Orientation: AAOx4 [place] Coma Scale Eye Opening: Spontaneous [place] Coma Scale Verbal: Oriented [place] Coma Scale Motor: Obeys Commands [place] Coma Scale Total: 15 Speech: Normal Motor strength normal: LUE, RUE, LLE, RLE Sensory: Normal - Psychological Associated symptoms: Normal affect, Normal mood - Skin Skin Temperature: Warm Skin Moisture: Dry Skin Color: Normal Course - Vital Signs Vital signs: Temp Pulse Resp BP Pulse Ox 98.2 F 68 16 107/56 L 99 01/30/19 20:32 01/30/19 20:32 01/30/19 20:32 01/30/19 20:32 01/30/19 20:32 - Laboratory Result Diagrams: 01/30/19 15:13 01/30/19 15:13 Laboratory results interpreted by me: 01/30/19 15:13 Urine Nitrite POSITIVE H Ur Leukocyte Esterase TRACE H - Diagnostic Test Radiology reviewed: Image reviewed, Reports reviewed - Transfer of Care Notes: 01/31/19 patient with upper abdominal pain for the past month that seems to get worse with eating. History of peptic ulcer disease and some of her story makes me concerned that she has had a recurrence. She had a negative right upper quadrant ultrasound today. Her labs are reassuring. We will plan on giving a GI cocktail seeing if that helps with her pain. She agrees with the plan Rounded on Patient after GI cocktail. States she feels much better and no longer has pain currently. We will plan on putting her on Carafate and have educated her on foods to avoid such as acidic foods like tomato-based or citric acid foods, avoid alcohol. Also sent for GI follow-up for further management. She agrees with the plan. Impression: Upper abdominal pain. History of peptic ulcer disease. We will send patient home on Carafate and follow the treatment plan as outlined above. On discharge she has a nontender, nondistended abdomen and she is feeling better. Have urged her to return if she worsens at all with fever, abdominal distention, worsening abdominal pain, intractable nausea and vomiting, rectal bleeding. She has no leukocytosis, no elevated liver enzymes, lipase is within normal limits, electrolytes are within normal limits. Vital signs are reassuring. Discharge - Discharge Clinical Impression: Upper abdominal pain Disposition: HOME, SELF-CARE Instructions: Abdominal Pain ([facility]) Additional Instructions: FOLLOW UP WITH GI SPECIALIST WITHOUT FAIL. RETURN IF WORSE. PUSH FLUIDS. TAKE MEDICINES PRESCRIBED. Prescriptions: Sucralfate [Carafate] 1 gm PO QID #420 ml Forms: Return to Work Referrals: JAUN PINZON MD [ACTIVE STAFF] - Follow up in 1 week (FOR GI FOLLOW UP)
[2019-01-30 20:32] VITALS: BP 107/56
== END 2019-01-30 20:33 | disposition home or self-care (01) ==
LOC: ER 14:18
DX: R10.11 Right upper quadrant pain (principal); R14.2 Eructation; R11.0 Nausea; R53.81 Other malaise; F17.200 Nicotine dependence, unspecified, uncomplicated; Z87.11 Personal history of peptic ulcer disease
CPT/HCPCS: 99284; 36415; 83690; 84703; 85025; 80053; 81001; 76705; J3490

== ENCOUNTER 2019-02-02 12:47 | Emergency (ER) | payer SELFPAY ==
[2019-02-02 12:56] VITALS: BP 111/58
== END 2019-02-02 13:36 | disposition left against medical advice (07) ==
LOC: ER 12:47
DX: Z53.21 Procedure and treatment not carried out due to patient leaving prior to being seen by health care provider (principal)

== ENCOUNTER 2019-04-12 20:17 | Emergency (ER) | payer SELFPAY ==
--- NOTE | 2019-04-12 22:34 | ER Document Report ---
ED Medical Screen (RME) - General Chief Complaint: Skin Problem Stated Complaint: BUMP ON NECK/NECK AND SHOULDER PAIN Time Seen by Provider: 04/12/19 22:28 Mode of Arrival: Ambulatory Information source: Patient Notes: 28-year-old female presented to ED for swollen lymph nodes in the left posterior cervical chain, left chest, and left side. She states they have been painful since about or Wednesday. She states sometimes when she just moves they are painful. She states she did not normally notice them until they were painful. She states she does not have any past medical history and does not have any past surgeries. She smokes 1/2 pack a day does not drink or do any drugs. 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 Patient is alert oriented respirations regular and unlabored speaking in full sentences walks with a even steady gait. I have greeted and performed a rapid initial assessment of this patient. A comprehensive ED assessment and evaluation of the patient, analysis of test results and completion of medical decision making process will be conducted by an additional ED providers. TRAVEL OUTSIDE OF THE [place] IN LAST 30 DAYS: No - Related Data Allergies/Adverse Reactions: No Known Allergies Allergy (Verified 02/02/19 12:50) Past Medical History Renal/ Medical History: Denies: Hx Peritoneal Dialysis GI Medical History: Reports: Hx Gastritis Psychiatric Medical History: Reports: Hx Anxiety, Hx Attention Deficit Hyperactivity Disorder, Hx Bipolar Disorder, Hx Depression - anxiety Infectious Medical History: Denies: Hx MRSA - Immunizations Hx Diphtheria, Pertussis, Tetanus Vaccination: Yes Physical Exam - Vital signs Vitals: Temp Pulse Resp BP Pulse Ox 98.8 F 83 16 111/55 L 96 04/12/19 20:40 04/12/19 20:40 04/12/19 20:40 04/12/19 20:40 04/12/19 20:40 Course - Vital Signs Vital signs: Temp Pulse Resp BP Pulse Ox 98.8 F 83 16 111/55 L 96 04/12/19 20:40 04/12/19 20:40 04/12/19 20:40 04/12/19 20:40 04/12/19 20:40
[2019-04-12 23:17] LABS: ABSOLUTE EOSINOPHILS # (AUTO) 0.2 10^3/uL (0.0-0.6); ABSOLUTE LYMPHOCYTES (AUTO) 3.9 10^3/uL (0.5-4.7); ABSOLUTE MONOCYTES (AUTO) 0.8 10^3/uL (0.1-1.4); ABSOLUTE NEUT (AUTO) 7.3 10^3/uL (1.7-8.2); BASOPHILS % (AUTO) 0.3 % (0-2); EOSINOPHILS % (AUTO) 1.4 % (0-6); HEMATOCRIT 41.6 % (36.0-47.0); HEMOGLOBIN 14.3 g/dL (12.0-15.5); LYMPHOCYTES % (AUTO) 31.9 % (13-45); MEAN CORPUSCULAR HEMOGLOBIN 31.7 pg (27.0-33.4); MEAN CORPUSCULAR HGB CONC 34.4 g/dL (32.0-36.0); MEAN CORPUSCULAR VOLUME 92 fl (80-97); MONOCYTES % (AUTO) 6.2 % (3-13); PLATELET COUNT 200 10^3/uL (150-450); RED BLOOD COUNT 4.53 10^6/uL (3.72-5.28); RED CELL DISTRIBUTION WIDTH 12.8 % (11.5-14.0); SEGMENTED NEUTROPHILS % (AUTO) 60.2 % (42-78); TOTAL CELLS COUNTED % (AUTO) 100 %; WHITE BLOOD COUNT 12.1 10^3/uL (4.0-10.5)
[2019-04-12 23:32] LABS: ALBUMIN 4.3 g/dL (3.5-5.0); ALKALINE PHOSPHATASE 94 U/L (38-126); ANION GAP 9 (5-19); ASPARTATE AMINO TRANSFERASE 49 U/L (14-36); BILIRUBIN,DIRECT 0.1 mg/dL (0.0-0.4); BILIRUBIN,TOTAL 0.6 mg/dL (0.2-1.3); BLOOD UREA NITROGEN 7 mg/dL (7-20); CALCIUM 9.5 mg/dL (8.4-10.2); CARBON DIOXIDE 28 mmol/L (22-30); CHLORIDE 104 mmol/L (98-107); GLUCOSE 95 mg/dL (75-110); POTASSIUM 3.4 mmol/L (3.6-5.0); TOTAL PROTEIN 6.9 g/dL (6.3-8.2)
--- NOTE | 2019-04-13 01:05 | ER Document Report ---
ED General - General Chief Complaint: Skin Problem Stated Complaint: BUMP ON NECK/NECK AND SHOULDER PAIN Time Seen by Provider: 04/12/19 22:28 Mode of Arrival: Ambulatory Notes: Patient presents for concern of swollen lymph node that is painful on the left posterior cervical chain. No sore throat no recent cough congestion or fevers. She did have a sore throat approximately 2 to 3 weeks ago but otherwise no recent illnesses. She also is concerned about a possible bump on her left side of her chest as well as a muscle pull after pulling on a lawn more in the medial aspect of her upper left thigh. TRAVEL OUTSIDE OF THE [place] IN LAST 30 DAYS: No - Related Data Allergies/Adverse Reactions: No Known Allergies Allergy (Verified 02/02/19 12:50) Past Medical History - General Information source: Patient - Social History Smoking Status: Unknown if Ever Smoked Family History: Reviewed & Not Pertinent Patient has suicidal ideation: No Patient has homicidal ideation: No Renal/ Medical History: Denies: Hx Peritoneal Dialysis GI Medical History: Reports: Hx Gastritis Psychiatric Medical History: Reports: Hx Anxiety, Hx Attention Deficit Hyperactivity Disorder, Hx Bipolar Disorder, Hx Depression - anxiety Infectious Medical History: Denies: Hx MRSA - Immunizations Hx Diphtheria, Pertussis, Tetanus Vaccination: Yes Review of Systems - Review of Systems Constitutional: No symptoms reported EENT: See HPI Cardiovascular: No symptoms reported Respiratory: No symptoms reported Gastrointestinal: No symptoms reported Genitourinary: No symptoms reported Female Genitourinary: No symptoms reported Musculoskeletal: See HPI Skin: No symptoms reported Hematologic/Lymphatic: No symptoms reported Neurological/Psychological: No symptoms reported Physical Exam - Vital signs Vitals: Temp Pulse Resp BP Pulse Ox 98.8 F 83 16 111/55 L 96 04/12/19 20:40 04/12/19 20:40 04/12/19 20:40 04/12/19 20:40 04/12/19 20:40 - General General appearance: Appears well, Alert - HEENT Head: Normocephalic, Atraumatic Eyes: Normal Conjunctiva: Normal Cornea: Normal Extraocular movements intact: Yes Pupils: PERRL Ears: Other. No: Pinna tenderness - No signs of mastoiditis on left or right Sinus: Normal Nasal: Normal Mouth/Lips: Normal Mucous membranes: Normal Pharynx: Normal Neck: Other - Small posterior cervical shotty lymph node - Respiratory Respiratory status: No respiratory distress Chest status: Other - No lymphadenopathy on left side of chest wall what patient was feeling was a rib - Cardiovascular Rhythm: Regular Heart sounds: Normal auscultation Murmur: No - Abdominal Inspection: Normal Distension: No distension Bowel sounds: Normal Tenderness: Nontender - Back Back: Normal, Nontender - Extremities General upper extremity: Normal inspection, Normal ROM General lower extremity: Normal inspection, Normal ROM - Neurological Neuro grossly intact: Yes Cognition: Normal Orientation: AAOx4 Course - Re-evaluation Re-evalutation: 04/13/19 01:03 Patient has no recent fevers illnesses or infection. She did have a sore throat present to 3 weeks ago. She has a shotty node that is mildly painful to palpation. Discussed that this is more of a [id number] she could have a viral reaction to this but she has no signs of infection at this time to warrant antibiotics. She does not have any lymphadenopathy palpated chest: There is symmetrical with the right chest wall and she is feeling her rib. In regards to her thigh the pain is worse with movement and goes with rest and she was pulling on the wall more just the other day significant for muscle strain. Will provide 5 days of anti-inflammatories. Return precautions provided - Vital Signs Vital signs: Temp Pulse Resp BP Pulse Ox 98.8 F 83 16 111/55 L 96 04/12/19 20:40 04/12/19 20:40 04/12/19 20:40 04/12/19 20:40 04/12/19 20:40 - Laboratory Result Diagrams: 04/12/19 22:48 04/12/19 22:48 Laboratory results interpreted by me: 04/12/19 04/12/19 22:48 22:48 WBC 12.1 H Potassium 3.4 L AST 49 H Discharge - Discharge Clinical Impression: Shotty lymph nodes Muscle strain, lower leg Qualifiers: Encounter type: initial encounter Laterality: left Qualified Code(s): S86.912A - Strain of unspecified muscle(s) and tendon(s) at lower leg level, left leg, initial encounter Condition: Good Disposition: HOME, SELF-CARE Instructions: Muscle Strain ([facility]) Additional Instructions: Please take medications as prescribed. If the lymph node becomes worse or enlarges. You have any sore throat or signs of upper respiratory infection please seek medical reevaluation. Prescriptions: Naproxen [Naprosyn] 500 mg PO BID #10 tablet
[2019-04-13 01:15] VITALS: BP 106/65
== END 2019-04-13 01:13 | disposition home or self-care (01) ==
LOC: ER 20:17
DX: S86.912A Strain of unspecified muscle(s) and tendon(s) at lower leg level, left leg, initial encounter (principal); R59.9 Enlarged lymph nodes, unspecified; M54.2 Cervicalgia; J02.9 Acute pharyngitis, unspecified; L98.9 Disorder of the skin and subcutaneous tissue, unspecified; X50.9XXA Other and unspecified overexertion or strenuous movements or postures, initial encounter
CPT/HCPCS: 36415; 80053; 84703; 85025

== ENCOUNTER 2019-07-19 19:45 | Emergency (ER) | payer SELFPAY ==
--- NOTE | 2019-07-19 20:49 | ER Document Report ---
ED Medical Screen (RME) - General Chief Complaint: Wrist Injury Stated Complaint: LEFT WRIST/HAND INJURY Time Seen by Provider: 07/19/19 20:46 Mode of Arrival: Ambulatory Information source: Patient Notes: 28-year-old female presents emergency department with complaints of left wrist pain. Reports she was walking her dog and fell on her outstretched wrist. No obvious deformity noted. Cap refill less than 3 seconds. I have greeted and performed a rapid initial assessment of this patient. A comprehensive ED assessment and evaluation of the patient, analysis of test results and completion of the medical decision making process will be conducted by additional ED providers. TRAVEL OUTSIDE OF THE [place] IN LAST 30 DAYS: No - Related Data Allergies/Adverse Reactions: No Known Allergies Allergy (Verified 02/02/19 12:50) Past Medical History Renal/ Medical History: Denies: Hx Peritoneal Dialysis GI Medical History: Reports: Hx Gastritis Psychiatric Medical History: Reports: Hx Anxiety, Hx Attention Deficit Hyperactivity Disorder, Hx Bipolar Disorder, Hx Depression - anxiety Infectious Medical History: Denies: Hx MRSA - Immunizations Hx Diphtheria, Pertussis, Tetanus Vaccination: Yes Physical Exam - Vital signs Vitals: Temp Pulse Resp BP Pulse Ox 98 F 82 18 122/54 L 100 07/19/19 20:11 07/19/19 20:11 07/19/19 20:11 07/19/19 20:11 07/19/19 20:11 Course - Vital Signs Vital signs: Temp Pulse Resp BP Pulse Ox 98 F 82 18 122/54 L 100 07/19/19 20:11 07/19/19 20:11 07/19/19 20:11 07/19/19 20:11 07/19/19 20:11
--- NOTE | 2019-07-19 21:35 | ER Document Report ---
HPI - HPI Time Seen by Provider: 07/19/19 20:46 Pain Level: 4 Context: Patient is a 28-year-old female that comes to the emergency department for chief complaint of injury to her left wrist. She states she was running around with her dog when she tripped over her dog and fell onto her knees and on her left outstretched wrist. She denies hitting her head, denies back pain, denies any other injuries. She is not on a blood thinner, denies , denies any daily medications. - CONSTITUTIONAL Constitutional: DENIES: Fever, Chills - REPRODUCTIVE Reproductive: DENIES: : - MUSCULOSKELETAL Musculoskeletal: REPORTS: Extremity pain Past Medical History - General Information source: Patient - Social History Smoking Status: Current Every Day Smoker Frequency of alcohol use: Rare Drug Abuse: Marijuana Lives with: Family Family History: Reviewed & Not Pertinent Patient has suicidal ideation: No Patient has homicidal ideation: No Renal/ Medical History: Denies: Hx Peritoneal Dialysis GI Medical History: Reports: Hx Gastritis Psychiatric Medical History: Reports: Hx Anxiety, Hx Attention Deficit Hyperactivity Disorder, Hx Bipolar Disorder, Hx Depression - anxiety, Hx Schizophrenia Infectious Medical History: Denies: Hx MRSA - Immunizations Hx Diphtheria, Pertussis, Tetanus Vaccination: Yes Vertical Provider Document - CONSTITUTIONAL General Appearance: WD/WN, No Apparent Distress - INFECTION CONTROL TRAVEL OUTSIDE OF THE [place] IN LAST 30 DAYS: No - HEENT HEENT: Atraumatic, Normal ENT Exam, Normocephalic - NECK Neck: Normal Inspection - RESPIRATORY Respiratory: Breath Sounds Normal, No Respiratory Distress - CARDIOVASCULAR Cardiovascular: Regular Rate, Regular Rhythm - GI/ABDOMEN Gastrointestinal: Abdomen Soft, Abdomen Non-Tender. negative: Abdomen Tender - BACK Back: Normal Inspection - MUSCULOSKELETAL/EXTREMETIES Musculoskeletal/Extremeties: MAEW, FROM, Tender - There are small abrasions which are superficial over both kneecaps, no bony tenderness, full range of motion of the knee, no evidence of significant knee injury. Normal distal neurovascular exam. Left wrist with tenderness over the dorsal aspect but no noted soft tissue swelling. No snuffbox tenderness. Range of motion intact. Normal capillary refill and sensation. Normal fingers, elbow, shoulder exam. Course - Re-evaluation Re-evalutation: Patient with some mild tenderness on palpation, no significant swelling, no snuffbox tenderness. No concerning findings otherwise. X-rays negative for fracture. Appears to be simple sprain. Provided with cock-up splint for support, discussed treatment, follow-up, expectations. Discussed return precautions. Patient states understanding and agreement. - Vital Signs Vital signs: Temp Pulse Resp BP Pulse Ox 98 F 82 18 122/54 L 100 07/19/19 20:11 07/19/19 20:11 07/19/19 20:11 07/19/19 20:11 07/19/19 20:11 Procedures - Immobilization Left wrist Pre-Proc Neuro Vasc Exam: Normal Immobilizer type: Cock-up Performed by: PCT Post-Proc Neuro Vasc Exam: Normal Alignment checked and good: Yes Discharge - Discharge Clinical Impression: Skin abrasion, Left wrist pain Condition: Stable Disposition: HOME, SELF-CARE Additional Instructions: Your exam is reassuring, the x-ray shows no fracture. This appears to be soft tissue swelling only. I recommend you wear the protective brace, take the Toradol as needed as an anti-inflammatory and for pain, ice 3-4 times a day for 10 to 15 minutes, and rest the wrist. Symptoms should resolve with time. Follow-up with primary care. Return for any concerning or worsening symptoms including severe worsening pain or swelling. Prescriptions: Ketorolac Tromethamine [Toradol 10 mg Tablet] 10 mg PO Q8HP PRN #24 tablet PRN Reason:
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
[2019-07-19 22:29] VITALS: BP 130/62
== END 2019-07-19 22:41 | disposition home or self-care (01) ==
LOC: ER 19:45
DX: M25.532 Pain in left wrist (principal); S80.212A Abrasion, left knee, initial encounter; S80.211A Abrasion, right knee, initial encounter; W01.0XXA Fall on same level from slipping, tripping and stumbling without subsequent striking against object, initial encounter; F17.200 Nicotine dependence, unspecified, uncomplicated; F12.10 Cannabis abuse, uncomplicated
CPT/HCPCS: 99283; 73110; L3908

== ENCOUNTER 2019-11-12 19:29 | Emergency (ER) | payer OTHER ==
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
[2019-11-12] MEDS ORDERED: OXYCODONE-ACETAMINOPHEN 5-325 MG TABLET PO ONE (20:50)
[2019-11-12] MEDS ORDERED: METHOCARBAMOL 500 MG TABLET PO ONE (20:50)
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
[2019-11-12 21:16] VITALS: BP 118/71
== END 2019-11-12 21:20 | disposition home or self-care (01) ==
LOC: ER 19:29
DX: M54.5 Low back pain (principal); V89.2XXA Person injured in unspecified motor-vehicle accident, traffic, initial encounter; F17.200 Nicotine dependence, unspecified, uncomplicated; Z97.5 Presence of (intrauterine) contraceptive device
CPT/HCPCS: 72110; 99283